=== PATIENT | male | born 1975 | race African-American/Black ===

== ENCOUNTER 2021-04-15 18:14 | Emergency (ER) | payer OTHER, SELFPAY | END 2021-04-15 19:09 | disposition home or self-care (01) | LOC: CSHERS 18:14 | DX: S01.112A Laceration without foreign body of left eyelid and periocular area, initial encounter (principal); E11.9 Type 2 diabetes mellitus without complications; E78.5 Hyperlipidemia, unspecified; I10 Essential (primary) hypertension; F17.210 Nicotine dependence, cigarettes, uncomplicated; Y04.0XXA Assault by unarmed brawl or fight, initial encounter | CPT/HCPCS: 12011; 70450 ==